=== PATIENT | female | born 1965 | race Caucasian/White ===

== ENCOUNTER 2016-09-23 07:52 | Day surgery (SDC) | payer OTHER ==
[~2016-09-23 07:52] MED LIST: AMANTADINE100 MG PO; ATIVAN1 M2 PO; BISCOLAX10 MG PR; CALAZIME TOP; EFFEXOR XR150 M1 PO; ENEMEEZ283 MG/5 M PR; KLOR-CON M2020 ME1 PO; LAMICTAL25 M2 PO; LOVENOX40 MG/0.1 SC; MEGACE400 MG/11 PO; MILK OF MAGNESIA PO; NYSTATIN TOP; PERCOCET 5-3251 EACH PO; TYLENOL325 M2 PO; ZOFRAN4 M2 PO
[2016-10-15] MEDS ORDERED: REMERON15 M1 PO (12:10)
[2016-10-15] MEDS ORDERED: VITAMIN D31000 UNI3 PO (12:11)
== END 2016-09-23 13:00 ==
LOC: SHSB 07:52 → PACU 11:21 → SHSB 11:45
PROC: 0HRCXK3 Replacement of Left Upper Arm Skin with Nonautologous Tissue Substitute, Full Thickness, External Approach (ICD-10-PCS; principal; 2016-09-23)
DX: S41.102A Unspecified open wound of left upper arm, initial encounter (principal); G40.909 Epilepsy, unspecified, not intractable, without status epilepticus; F32.9 Major depressive disorder, single episode, unspecified; Z79.01 Long term (current) use of anticoagulants; Z79.899 Other long term (current) drug therapy; Z91.048 Other nonmedicinal substance allergy status; Z87.820 Personal history of traumatic brain injury; Z90.49 Acquired absence of other specified parts of digestive tract; Z98.890 Other specified postprocedural states
CPT/HCPCS: J0171; J1580; J3370; Q4104

== ENCOUNTER 2016-10-22 11:24 | Day surgery (SDC) | payer OTHER ==
[~2016-10-22 11:24] MED LIST changes: +REMERON15 M1 PO; +VITAMIN D31000 UNI3 PO
== END 2016-10-25 13:25 ==
LOC: SHSC 11:24 → SRG 16:08
PROC: 0HREX74 Replacement of Left Lower Arm Skin with Autologous Tissue Substitute, Partial Thickness, External Approach (ICD-10-PCS; principal; 2016-10-22)
DX: S41.102A Unspecified open wound of left upper arm, initial encounter (principal); F32.9 Major depressive disorder, single episode, unspecified; G40.909 Epilepsy, unspecified, not intractable, without status epilepticus; Z88.8 Allergy status to other drugs, medicaments and biological substances; Z90.49 Acquired absence of other specified parts of digestive tract; Z79.899 Other long term (current) drug therapy; X58.XXXA Exposure to other specified factors, initial encounter; Z98.890 Other specified postprocedural states
CPT/HCPCS: J0171; J1580; J1650; J2270; J3010; J3370